=== PATIENT | male | born 1990 | race Caucasian/White ===

== ENCOUNTER 2020-09-19 13:25 | Emergency (ER) | payer BC, OTHER ==
--- NOTE | 2020-09-19 14:51 | EDM.PDOC ---
ED HPI GENERAL MEDICAL PROBLEM - General Chief Complaint: Upper Extremity Injury/Pain Stated Complaint: LEFT SHOULDER INJURY Time Seen by Provider: 09/19/20 14:30 Source of Information: Reports: Patient History Limitations: Reports: No Limitations - History of Present Illness INITIAL COMMENTS - FREE TEXT/NARRATIVE: HISTORY AND PHYSICAL: History of present illness: The patient is a 30-year-old male who presents to the emergency room with complaints of left shoulder pain and inability to left shoulder past 90 degrees. On Friday he was lifting and felt a sharp pain. Reports minimal pain. Yesterday he was again lifting at work and had sharp pain is unable to lift his arm. He has no obvious injury or trauma to this shoulder. He is unable to keep the arm after a couple minutes. He stated that he dropped a screwdriver several. He does have a history of injury to his right shoulder. Review of systems: As per history of present illness and below otherwise all systems reviewed and negative. Past medical history: As per history of present illness and as reviewed below otherwise noncontributory. Surgical history: As per history of present illness and as reviewed below otherwise noncontributory. Social history: See social history for further information Family history: As per history of present illness and as reviewed below otherwise noncontributory. Physical exam: General: Well developed and well nourished. Alert and orientated x 3. Nontoxic in appearance and in no acute distress. Vital signs are stable and have been reviewed by me. Nursing notes were reviewed. HEENT: Atraumatic, normocephalic, pupils equal and reactive bilaterally, negative for conjunctival pallor or scleral icterus, mucous membranes moist, TMs normal bilaterally, throat clear, neck supple, nontender, trachea midline. No drooling or trismus noted. No meningeal signs. No hot potato voice noted. Lungs: Clear to auscultation bilaterally. No wheezes, rales, or rhonchi. Chest nontender. Normal work of breathing, no accessory muscles used. Heart: S1S2, regular rate and rhythm without overt murmur, gallops, or rubs. No JVD. No peripheral edema Abdomen: Soft, nondistended, nontender. Normoactive bowel sounds. Negative for masses or costovertebral tenderness. Skin: Intact, warm, dry. No lesions or rashes noted. Hematologic: No petechiae or purpra. Mucosa appropriate color and normal nail bed color and refill. Extremities: Left shoulder pain with raise of 45 degrees. Color and sensation intact. Envelope Stuffer intact. Neurovascular unremarkable. Neuro: Awake, alert, oriented. Cranial nerves II through XII unremarkable. Cerebellum unremarkable. Motor and sensory unremarkable throughout. Exam nonfocal. Psychiatric: Mood and affect are appropriate. Normal thought process. Answering questions appropriately. Notes: *This patient was seen and evaluated during the 2019 SARS-CoV-2 novel coronavirus pandemic period. Community viral transmission is ongoing at time of this encounter and the emergency department is operating under pandemic response procedures. The patient is agreeable to a shoulder x-ray. The shoulder x-ray per the radiologist is in no acute osseous injury or abnormality noted. We will fit the patient with a left shoulder sling. The shoulder sling to left shoulder for shoulder pain to be worn until follow up with orthopedic for joint stabilization. I have talked with the patient about today's findings, in addition to providing specific details for plan of care. Reassessment at the time of disposition demonstrates that the patient is in no acute distress. The patient is stable for discharge, counseling was provided and we discussed in great detail signs and symptoms that would prompt them to return to the Emergency Department. Medication, follow up and supportive care measures were reviewed and discussed. Voices understanding and is agreeable to plan of care. Denies any further questions or concerns at this time. Diagnostics: x-ray Therapeutics: Shoulder sling Prescription: None Impression: Shoulder Strain Plan: 1. You were evaluated today on an emergent basis. Your x-ray was normal. You were fitted for a sling. Wear the sling until follow-up with orthopedic. You can continue to use ice or heat on that area. A note was given for work with a return of 09/25/2020. 2. You can alternate Tylenol and ibuprofen as needed for pain and fever management. 3. We encourage you to follow up with your primary care provider and/or recommended specialist in the next few days for re-evaluation and further care/management. 4. If your symptoms should worsen, new symptoms develop or any of the signs and symptoms we discussed should arise please return to the emergency room or call 911 (if needed). Definitive disposition and diagnosis as appropriate pending reevaluation and review of above. Left Shoulder Pain Score (Numeric/FACES): 8 - Related Data Allergies Allergy/AdvReac Type Severity Reaction Status Date / Time No Known Allergies Allergy Verified 09/19/20 14:52 Home Meds: Home Meds . [No Known Home Meds] 02/29/16 [History] Past Medical History - Past Health History Medical/Surgical History: Denies Medical/Surgical History Social & Family History - Family History Family Medical History: No Pertinent Family History Review of Systems - Review of Systems Review Of Systems: Comprehensive ROS is negative, except as noted in HPI. ED EXAM, GENERAL - Physical Exam Exam: See Below (See dictation) Course - Vital Signs Last Recorded V/S: Last Vital Signs Temp 97 F 09/19/20 14:53 Pulse 69 09/19/20 14:53 Resp 18 09/19/20 14:53 BP 118/71 09/19/20 14:53 Pulse Ox 97 09/19/20 14:53 - Orders/Labs/Meds Orders: Active Orders 24 hr Category Date Time Status DME for Discharge [COMM] Stat Oth 09/19/20 14:56 Ordered Departure - Departure Time of Disposition: 15:15 Disposition: Home, Self-Care 01 Condition: Good Clinical Impression: Left shoulder strain Qualifiers: Encounter type: initial encounter Qualified Code(s): S46.912A - Strain of unspecified muscle, fascia and tendon at shoulder and upper arm level, left arm, initial encounter - Discharge Information *PRESCRIPTION DRUG MONITORING PROGRAM REVIEWED*: Not Applicable *COPY OF PRESCRIPTION DRUG MONITORING REPORT IN PATIENT DORIS: Not Applicable Instructions: Shoulder Pain, [id number] Referrals: PCP,None [Primary Care Provider] - Forms: ED Department Discharge Additional Instructions: The following information is given to patients seen in the emergency department who are being discharged to home. This information is to outline your options for follow-up care. We provide all patients seen in our emergency department with a follow-up referral. The need for follow-up, as well as the timing and circumstances, are variable depending upon the specifics of your emergency department visit. If you don't have a primary care physician on staff, we will provide you with a referral. We always advise you to contact your personal physician following an emergency department visit to inform them of the circumstance of the visit and for follow-up with them and/or the need for any referrals to a consulting specialist. The emergency department will also refer you to a specialist when appropriate. This referral assures that you have the opportunity for follow-up care with a specialist. All of these measure are taken in an effort to provide you with optimal care, which includes your follow-up. Under all circumstances we always encourage you to contact your private physician who remains a resource for coordinating your care. When calling for follow-up care, please make the office aware that this follow-up is from your recent emergency room visit. If for any reason you are refused follow-up, please contact the [facility] Emergency Department at and asked to speak to the emergency department charge nurse. [facility] [address] [place] [id number] [facility] [address] [place] [id number] Plan: 1. You were evaluated today on an emergent basis. Your x-ray was normal. You were fitted for a sling. Wear the sling until follow-up with orthopedic. You can continue to use ice or heat on that area. A note was given for work with a return of 09/25/2020. 2. You can alternate Tylenol and ibuprofen as needed for pain and fever management. 3. We encourage you to follow up with your primary care provider and/or recommended specialist in the next few days for re-evaluation and further care/management. 4. If your symptoms should worsen, new symptoms develop or any of the signs and symptoms we discussed should arise please return to the emergency room or call 911 (if needed). Sepsis Event Note (ED) - Focused Exam Vital Signs: Vital Signs Temp Pulse Resp BP Pulse Ox 09/19/20 14:53 97 F 69 18 118/71 97 - My Orders Last 24 Hours: My Active Orders 09/19/20 14:56 DME for Discharge [COMM] Stat - Assessment/Plan Last 24 Hours: My Active Orders 09/19/20 14:56 DME for Discharge [COMM] Stat
[2020-09-19 14:55] VITALS: BP 118/71; PULSE 69
--- NOTE | 2020-09-19 15:03 | CR ---
INDICATION: Shoulder Pain TECHNIQUE: Shoulder radiograph 3 views left COMPARISON: None FINDINGS: Bone: No acute fractures or aggressive bone lesions are identified. Joint: The glenohumeral joint is unremarkable. The acromioclavicular joint is unremarkable. Soft tissue: Unremarkable. The visualized hemithorax is unremarkable in appearance. No radiopaque foreign bodies are seen. IMPRESSION: 1. No acute osseous injuries or abnormalities are noted. Dictated by: Darío Kemp MD @ 09/19/2020 15:01:48 (Electronically Signed)
== END 2020-09-19 15:23 | disposition home or self-care (01) ==
LOC: MW.ED 13:25
DX: S46.912A Strain of unspecified muscle, fascia and tendon at shoulder and upper arm level, left arm, initial encounter (principal); X50.0XXA Overexertion from strenuous movement or load, initial encounter; Y92.89 Other specified places as the place of occurrence of the external cause; Y99.0 Civilian activity done for income or pay
CPT/HCPCS: 73030-26-LT; 73030-LT; 99283

== ENCOUNTER 2023-07-02 17:21 | Emergency (ER) | payer BC ==
[2023-07-02] MEDS ORDERED: Acetaminophen 325 MG Tab PO ONE (19:32)
[2023-07-02] MEDS ORDERED: Ketorolac 30 MG/ML SDV IM ONE (19:32)
[2023-07-02] MEDS ORDERED: Lidocaine 4% 1 each Patch TOP SCH (19:45)
[2023-07-02 20:00] VITALS: BP 134/100; PULSE 87
[2023-07-03] MEDS ORDERED: Lidocaine 4% 1 each Patch TOP SCH (09:00)
== END 2023-07-02 20:00 | disposition home or self-care (01) ==
LOC: MW.ED 17:21
DX: M54.50 Low back pain, unspecified (principal); W01.0XXA Fall on same level from slipping, tripping and stumbling without subsequent striking against object, initial encounter
CPT/HCPCS: 96372; 99283; A9270; J1885